=== PATIENT | female | born 1965 ===

== ENCOUNTER 2017-05-27 17:42 | Observation (INO) | payer MEDICARE, OTHER ==
[2017-05-27 17:48] VITALS: BMI 25.6
[2017-05-27] MEDS ORDERED: Morphine 4 MG/ML VIAL ONE (20:05)
[2017-05-27 20:22] LABS: BASO # 0.1 K/uL (0.0-0.2); BASO % 1.1 % (0.0-2.0); EOS # 0.3 K/uL (0.0-0.7); EOS % 3.7 % (0.0-4.0); HEMOGLOBIN 13.3 g/dL (11.0-16.0); LYMPH # 2.3 K/uL (1.0-4.3); LYMPH % 29.1 % (20.0-40.0); MEAN CELL VOLUME 82.1 fL (81.0-99.0); MEAN CORPUSCULAR HEMOGLOBIN 27.4 pg (27.0-31.0); MEAN CORPUSCULAR HGB CONC 33.3 g/dL (33.0-37.0); MONO # 0.7 K/uL (0.0-0.8); MONO % 8.8 % (0.0-10.0); NEUT # 4.5 K/uL (1.8-7.0); NEUT % 57.3 % (50.0-75.0); RBC 4.85 Mil/uL (3.80-5.20); RED CELL DISTRIBUTION WIDTH 18.9 % (11.5-14.5); WHITE BLOOD COUNT 7.9 K/uL (4.8-10.8)
[2017-05-27 20:31] LABS: INR 1.1; PROTHROMBIN TIME 12.5 SECONDS (9.7-12.2)
[2017-05-27 20:40] LABS: ALB/GLOB RATIO 1.2 (1.0-2.1); ALBUMIN 4.2 g/dL (3.5-5.0); ALT/SGPT 22 U/L (9-52); AST/SGOT 28 U/L (14-36); BLOOD UREA NITROGEN 18 mg/dL (7-17); CALCIUM 9.8 mg/dl (8.6-10.4); GFR AFRICAN-AMERICAN > 60; GFR NON-AFRICAN AMERICAN > 60; LIPASE 90 U/L (23-300)
[2017-05-27 20:43] LABS: SQUAMOUS EPITHIAL 1 /hpf (0-5); URINE BILIRUBIN NEGATIVE (NEGATIVE); URINE BLOOD NEGATIVE (NEGATIVE); URINE CLARITY Clear (Clear); URINE COLOR Yellow (YELLOW); URINE GLUCOSE (UA) NORMAL (Normal); URINE LEUKOCYTE ESTERASE NEG Leu/uL (Negative); URINE PROTEIN NEGATIVE (NEGATIVE); URINE UROBILINOGEN NORMAL mg/dL (0.2-1.0)
[2017-05-27 20:52] LABS: B-TYPE NATRIURETIC PEPTIDE 14.4 pg/mL (0-900)
[2017-05-27 20:54] LABS: BARBITURATES, UR NEGATIVE (NEGATIVE); PHENCYCLIDINE, UR NEGATIVE (NEGATIVE)
[2017-05-27 20:58] LABS: BENZODIAZEPINES, UR POSITIVE (NEGATIVE); OPIATES, UR POSITIVE (NEGATIVE)
[2017-05-27] MEDS ORDERED: DiphenhydrAMINE 50 mg/ml Inj IVP STA (21:19)
[2017-05-27] MEDS ORDERED: DiphenhydrAMINE 50 mg/ml Inj ONE (21:22)
[2017-05-27] MEDS ORDERED: Iodixanol 320 mg/ml 150 ml Bottle IV ONE (21:40)
--- NOTE | 2017-05-27 23:10 | CT ---
PROCEDURE: CT Chest with contrast (Pulmonary Angiogram) HISTORY: Chest pain, h/o PE COMPARISON: None available. TECHNIQUE: Axial computed tomography images were obtained of the chest in the pulmonary arterial phase of enhancement. Coronal and sagittal reformatted images were created and reviewed. Intravenous contrast dose: 100 cc of Visipaque 320 Radiation dose: Total exam DLP = 296.83 mGy-cm. This CT exam was performed using one or more of the following dose reduction techniques: Automated exposure control, adjustment of the mA and/or kV according to patient size, and/or use of iterative reconstruction technique. FINDINGS: PULMONARY ARTERIES: Unremarkable. No pulmonary embolism. AORTA: No acute findings. The thoracic aorta is ectatic. No thoracic aortic aneurysm. LUNGS: Unremarkable. No nodule, mass or pulmonary consolidation. PLEURAL SPACES: Unremarkable. No effusion or pneuomothorax. HEART: Unremarkable. No cardiomegaly. No significant pericardial effusion. LYMPH NODES: No lymphadenopathy. BONES, CHEST WALL: Status post internal fixation at the lower cervical spine. No fracture or destructive lesion OTHER FINDINGS: Unremarkable. IMPRESSION: No evidence of central pulmonary embolus. No evidence of pneumonia or suspicious mass in the lungs. Ectatic thoracic aorta without evidence of significant aneurysm or dissection.
--- NOTE | 2017-05-27 23:13 | C.PDOC ---
History Of Present Illness Pt states that she is on Eliquis due to Pulmonary Embolim. She c/o new onset chest pains. Time Seen by Provider: 05/27/17 19:40 Chief Complaint (Nursing): Chest Pain History Per: Patient Onset/Duration Of Symptoms: Days (2), Waxing/Waning Current Symptoms Are (Timing): Still Present Severity: Moderate Quality: "Pain" Associated Symptoms: Dyspnea Modifying Factors: Other Indicated Below Alleviating Factors: None Additional History Per: Prior Records Past Medical History Reviewed: Historical Data, Nursing Documentation, Vital Signs Vital Signs: Last Vital Signs Temp 98.5 F 05/27/17 17:55 Pulse 96 H 05/27/17 21:22 Resp 17 05/27/17 21:22 BP 134/83 05/27/17 21:22 Pulse Ox 97 05/27/17 21:22 - Medical History PMH: Anxiety, Back Problems, Depression, HTN, Hypothyroidism, Pulmonary Embolism , Chronic Pain Surgical History: Appendectomy, Back Surgery (X5), Cholecystectomy - [facility] Procedures TURBINECTOMY NEC (09/18/12) Family History: States: Unknown Family Hx - Social History Hx Alcohol Use: Yes Hx Substance Use: No Review Of Systems Except As Marked, All Systems Reviewed And Found Negative. Constitutional: Negative for: Fever, Weakness Cardiovascular: Positive for: Chest Pain Respiratory: Positive for: Cough. Negative for: Shortness of Breath, Hemoptysis Gastrointestinal: Negative for: Vomiting, Abdominal Pain Musculoskeletal: Positive for: Back Pain Skin: Negative for: Rash Neurological: Negative for: Weakness, Numbness Physical Exam - Physical Exam Appears: Non-toxic, No Acute Distress, Other (Uncomfortable) Skin: Normal Color, Warm, Dry, No Rash Head: Atraumatic, Normacephalic Eye(s): bilateral: PERRL, EOMI Neck: Normal ROM, Supple Cardiovascular: Rhythm Regular Respiratory: Normal Breath Sounds, No Accessory Muscle Use Gastrointestinal/Abdominal: Soft, No Tenderness Extremity: Normal ROM Neurological/Psych: Oriented x3, Normal Motor, Normal Sensation ED Course And Treatment - Laboratory Results Result Diagrams: 05/27/17 20:15 05/27/17 20:15 ECG: Interpreted By Me, Viewed By Me ECG Rhythm: Sinus Rhythm, Nonspecific Changes ECG Interpretation: No Acute Changes Rate From EC O2 Sat by Pulse Oximetry: 97 Pulse Ox Interpretation: Normal - CT Scan/US CTA of chest Other Rad Studies (CT/US): Read By Radiologist, Radiology Report Reviewed CT/US Interpretation: No sign of PE Progress - Interventions Interventions:: Observation - Medications Administered Oral: Aspirin Intravenous: Antihistamine (H-1), Opiate - Data Reviewed Data Reviewed: Lab, Diagnostic imaging, EKG, Old records - Patient Status Patient status: Partially improved - Continuity of Care Discussed patient case with:: Patient, ED Nurse, On-call PMD-pt unassigned Disposition Discussed With DrBindu: Moshe Salcedo Jr. Comment: He accepted pt on his service. Pt was also signed out to the MAR. Doctor Will See Patient In The: Hospital Counseled Patient/Family Regarding: Studies Performed, Diagnosis - Disposition Disposition: HOSPITALIZED Disposition Time: 23:22 Condition: FAIR - Clinical Impression Clinical Impression: Chest pain, rule out acute myocardial infarction
[2017-05-28] MEDS ORDERED: Morphine 4 MG/ML VIAL IVP STA (01:37)
[2017-05-28] MEDS ORDERED: Albuterol HFA 90 mcg/actuation (8 g) INH PRN (01:37)
--- NOTE | 2017-05-28 01:48 | CP.PCM.HP ---
History of Present Illness - History of Present Illness History of Present Illness: CC: chest pain 51 year old female with past medical history of anxiety, asthma, hypertension, PE on Eliquis and lumbar radiculopathy presents to the ED for chest pain. Patient reports her chest pain started 3 days ago. Patient reports the pain is located on her left side, radiates to the sternum, and it is worse with arm movement and position changes. Patient's pain did not improve and her pain management doctor recommend her to go to the ED to get evaluated. Patient also reports to have shortness of breath when the chest pain. Patient has extensive workup on her lumbar radiculopathy and is planning to have orthopedic in July with Dr. Babcock. Patient denies having fever, chills, headache, recent injuries to the chest, abdominal pain, nausea, vomiting or urinary symptoms. PMD: none PMHx: anxiety, hypertension, PE on Eliquis and lumbar radiculopathy PSHx: multiple spinal/neuro surgeries 2008 to 2013 due to a fall, partial thyroidectomy 2010 Allergy: erythromycin, metoprolol (throat swelling) Family Hx: non-contributory Social Hx: social alcohol use, former cigarette smoker, denies other drug use Home meds: albuterol, xanax, Norvasc, eliquis, lipitor, flexeril, synthroid, percocet Present on Admission - Present on Admission Any Indicators Present on Admission: No Review of Systems - Constitutional Constitutional: As Per HPI. absent: Chills, Fatigue, Fever - EENT Eyes: As Per HPI. absent: Change in Vision, Irritation Ears: As Per HPI. absent: Dizziness Nose/Mouth/Throat: As Per HPI. absent: Epistaxis, Nasal Trauma - Breasts Breasts: As Per HPI - Cardiovascular Cardiovascular: As Per HPI, Chest Pain, Chest Pain with Activity, Dyspnea. absent: Diaphoresis - Respiratory Respiratory: As Per HPI, Dyspnea. absent: Cough - Gastrointestinal Gastrointestinal: As Per HPI. absent: Nausea, Vomiting - Genitourinary Genitourinary: As Per HPI. absent: Dysuria - Reproductive: Female Reproductive:Female: As Per HPI - Menstruation Menstruation: As Per HPI - Musculoskeletal Musculoskeletal: As Per HPI, Radiating Pain into Limb. absent: Joint Swelling - Integumentary Integumentary: As Per HPI. absent: Alopecia - Neurological Neurological: As Per HPI, Radicular Pain. absent: Abnormal Speech, Tremor - Psychiatric Psychiatric: As Per HPI, Anxiety - Endocrine Endocrine: As Per HPI - Hematologic/Lymphatic Hematologic: As Per HPI Past Patient History - Past Social History Smoking Status: Former Smoker - CARDIAC Hx Hypertension: Yes - PULMONARY Hx Pulmonary Embolism: Yes - NEUROLOGICAL Hx Seizures: No - HEENT Hx HEENT Problems: No - RENAL Hx Chronic Kidney Disease: No - ENDOCRINE/METABOLIC Hx Hypothyroidism: Yes - HEMATOLOGICAL/ONCOLOGICAL Hx Human Immunodeficiency Virus (HIV): No - INTEGUMENTARY Hx Dermatological Problems: No - MUSCULOSKELETAL/RHEUMATOLOGICAL Hx Back Pain: Yes - GASTROINTESTINAL Hx Gastrointestinal Disorders: No - GENITOURINARY/GYNECOLOGICAL Hx Sexually Transmitted Disorders: No - PSYCHIATRIC Hx Anxiety: Yes Hx Depression: Yes Hx Substance Use: No - SURGICAL HISTORY Hx Appendectomy: Yes Hx Cholecystectomy: Yes - ANESTHESIA Hx Anesthesia: Yes Hx Anesthesia Reactions: No Meds Allergies/Adverse Reactions: Allergies Allergy/AdvReac Type Severity Reaction Status Date / Time erythromycin base Allergy ITCHING Verified 05/27/17 17:46 metoprolol Allergy ITCHING Verified 05/27/17 17:46 Physical Exam - Constitutional Appears: Non-toxic, No Acute Distress - Head Exam Head Exam: NORMOCEPHALIC - Eye Exam Eye Exam: EOMI, Normal appearance - ENT Exam ENT Exam: Mucous Membranes Moist - Neck Exam Neck exam: Positive for: Normal Inspection - Respiratory Exam Respiratory Exam: Clear to Auscultation Bilateral, NORMAL BREATHING PATTERN. absent: Wheezes, Respiratory Distress - Cardiovascular Exam Cardiovascular Exam: REGULAR RHYTHM, +S1, +S2 - GI/Abdominal Exam GI & Abdominal Exam: Normal Bowel Sounds, Soft. absent: Tenderness - Extremities Exam Additional comments: positive straight leg test on the right - Neurological Exam Neurological exam: Alert, Oriented x3 - Psychiatric Exam Psychiatric exam: Normal Affect, Normal Mood - Skin Skin Exam: Dry, Warm Results - Vital Signs Recent Vital Signs: Last Vital Signs Temp 98.5 F 05/27/17 17:55 Pulse 73 05/28/17 01:06 Resp 16 05/28/17 01:06 BP 123/77 05/28/17 01:06 Pulse Ox 98 05/28/17 01:06 - Labs Result Diagrams: 05/27/17 20:15 05/27/17 20:15 Labs: Laboratory Results - last 24 hr 04/12/0405/27/17 05/27/17 20:15 20:15 20:15 WBC 7.9 RBC 4.85 Hgb 13.3 Hct 39.8 MCV 82.1 MCH 27.4 MCHC 33.3 RDW 18.9 H Plt Count 337 MPV 8.0 Neut % (Auto) 57.3 Lymph % (Auto) 29.1 Cross % (Auto) 8.8 Eos % (Auto) 3.7 Baso % (Auto) 1.1 Neut # (Auto) 4.5 Lymph # (Auto) 2.3 Cross # (Auto) 0.7 Eos # (Auto) 0.3 Baso # (Auto) 0.1 PT 12.5 H INR 1.1 APTT 32 D-Dimer, Quantitative 342 H Sodium 144 Potassium 3.8 Chloride 103 Carbon Dioxide 27 Anion Gap 18 BUN 18 H Creatinine 0.6 L Est GFR ( Amer) > 60 Est GFR (Non-Af Amer) > 60 Random Glucose 88 Calcium 9.8 Total Bilirubin 0.5 AST 28 ALT 22 Alkaline Phosphatase 79 Troponin I < 0.0120 NT-Pro-B Natriuret Pep 14.4 Total Protein 7.6 Albumin 4.2 Globulin 3.4 Albumin/Globulin Ratio 1.2 Lipase 90 Urine Color Urine Clarity Urine pH Ur Specific [place] Urine Protein Urine Glucose (UA) Urine Ketones Urine Blood Urine Nitrate Urine Bilirubin Urine Urobilinogen Ur Leukocyte Esterase Urine WBC (Auto) Urine RBC (Auto) Ur Squamous Epith Cells Urine Opiates Screen Urine Methadone Screen Ur Barbiturates Screen Ur Phencyclidine Scrn Ur Amphetamines Screen U Benzodiazepines Scrn U Oth Cocaine Metabols U Cannabinoids Screen 05/27/17 05/27/17 20:34 20:34 WBC RBC Hgb Hct MCV MCH MCHC RDW Plt Count MPV Neut % (Auto) Lymph % (Auto) Cross % (Auto) Eos % (Auto) Baso % (Auto) Neut # (Auto) Lymph # (Auto) Cross # (Auto) Eos # (Auto) Baso # (Auto) PT INR APTT D-Dimer, Quantitative Sodium Potassium Chloride Carbon Dioxide Anion Gap BUN Creatinine Est GFR ( Amer) Est GFR (Non-Af Amer) Random Glucose Calcium Total Bilirubin AST ALT Alkaline Phosphatase Troponin I NT-Pro-B Natriuret Pep Total Protein Albumin Globulin Albumin/Globulin Ratio Lipase Urine Color Yellow Urine Clarity Clear Urine pH 6.0 Ur Specific [place] 1.017 Urine Protein Negative Urine Glucose (UA) Normal Urine Ketones Negative Urine Blood Negative Urine Nitrate Negative Urine Bilirubin Negative Urine Urobilinogen Normal Ur Leukocyte Esterase Neg Urine WBC (Auto) 1 Urine RBC (Auto) 1 Ur Squamous Epith Cells 1 Urine Opiates Screen Positive H Urine Methadone Screen Negative Ur Barbiturates Screen Negative Ur Phencyclidine Scrn Negative Ur Amphetamines Screen Negative U Benzodiazepines Scrn Positive U Oth Cocaine Metabols Negative U Cannabinoids Screen Negative Assessment & Plan - Assessment and Plan (Free Text) Assessment: Chest pain r/o ACS -EKG NSR at 95 bpm, left [place] deviation, no acute ST changes -Troponin negative, repeats pending -Elevated d-dimer, CTA chest negative for PE -Follow up morning EKG -Toradol for pain History of PE -Eliquis 5mg BID Hypertension -Amlodipine 5mg bid Asthma -Ventolin prn Thyroid tumor s/p partial resection -synthroid 75mcg Lumbar radiculopathy -Flexeril 10mg prn -Percocet Prophylactic measures -Protonix -Eliquis Discussed with attending All management per Dr. Salcedo
[2017-05-28] MEDS ORDERED: Morphine 4 MG/ML VIAL IVP ONE (04:45)
[2017-05-28 04:52] LABS: ALB/GLOB RATIO 1.2 (1.0-2.1); ALBUMIN 3.6 g/dL (3.5-5.0); ALT/SGPT 29 U/L (9-52); AST/SGOT 22 U/L (14-36); BLOOD UREA NITROGEN 15 mg/dL (7-17); GFR AFRICAN-AMERICAN > 60; GFR NON-AFRICAN AMERICAN > 60
[2017-05-28] MEDS ORDERED: DiphenhydrAMINE 50 mg/ml Inj IVP ONE ×2 (05:04→14:15)
[2017-05-28] MEDS ORDERED: Levothyroxine 75 MCG TAB PO SCH (06:30)
--- NOTE | 2017-05-28 06:58 | RAD ---
Chest x-ray single frontal view History: Chest pain. Comparison: None available. Findings Mild venous congestion. Right hilar prominence. Mild patchy increased markings at the left lung base. Heart size within normal limits. Postsurgical changes in the cervical spine. Impression: Mild venous congestion. Right hilar prominence. Mild patchy increased markings at the left lung base. Heart size within normal limits. Postsurgical changes in the cervical spine.
[2017-05-28 07:21] LABS: BASO # 0.1 K/uL (0.0-0.2); BASO % 1.4 % (0.0-2.0); EOS # 0.3 K/uL (0.0-0.7); EOS % 4.8 % (0.0-4.0); HEMOGLOBIN 12.2 g/dL (11.0-16.0); LYMPH # 2.2 K/uL (1.0-4.3); LYMPH % 34.8 % (20.0-40.0); MEAN CELL VOLUME 82.5 fL (81.0-99.0); MEAN CORPUSCULAR HEMOGLOBIN 27.2 pg (27.0-31.0); MEAN CORPUSCULAR HGB CONC 32.9 g/dL (33.0-37.0); MEAN PLATELET VOLUME 7.8 fL (7.2-11.7); MONO # 0.6 K/uL (0.0-0.8); MONO % 8.8 % (0.0-10.0); NEUT # 3.2 K/uL (1.8-7.0); NEUT % 50.2 % (50.0-75.0); NRBC % 0.2 % (0.0-2.0); RBC 4.48 Mil/uL (3.80-5.20); RED CELL DISTRIBUTION WIDTH 18.6 % (11.5-14.5); WHITE BLOOD COUNT 6.3 K/uL (4.8-10.8)
[2017-05-28] MEDS ORDERED: Pantoprazole 40 mg EC Tab PO SCH (10:00)
[2017-05-28] MEDS ORDERED: Enoxaparin 40 mg Syringe SC SCH (10:00)
[2017-05-28 10:27] LABS: CK-MB 0.32 ng/mL (0.0-3.38)
[2017-05-28 15:17] VITALS: RESP 16
--- NOTE | 2017-05-28 16:45 | CP.PCM.DIS ---
Provider - Provider Date of Admission: 05/27/17 23:23 Attending physician: Moshe Salcedo Jr, MD Time Spent in preparation of Discharge (in minutes): 45 Hospital Course - Lab Results Lab Results: Most Recent Lab Values WBC 6.3 K/uL (4.8-10.8) 05/28/17 04:00 RBC 4.48 Mil/uL (3.80-5.20) 05/28/17 04:00 Hgb 12.2 g/dL (11.0-16.0) 05/28/17 04:00 Hct 37.0 % (34.0-47.0) 05/28/17 04:00 MCV 82.5 fL (81.0-99.0) 05/28/17 04:00 MCH 27.2 pg (27.0-31.0) 05/28/17 04:00 MCHC 32.9 g/dL (33.0-37.0) L 05/28/17 04:00 RDW 18.6 % (11.5-14.5) H 05/28/17 04:00 Plt Count 268 K/uL (130-400) 05/28/17 04:00 MPV 7.8 fL (7.2-11.7) 05/28/17 04:00 Neut % (Auto) 50.2 % (50.0-75.0) 05/28/17 04:00 Lymph % (Auto) 34.8 % (20.0-40.0) 05/28/17 04:00 [place] % (Auto) 8.8 % (0.0-10.0) 05/28/17 04:00 Eos % (Auto) 4.8 % (0.0-4.0) H 05/28/17 04:00 Baso % (Auto) 1.4 % (0.0-2.0) 05/28/17 04:00 Neut # (Auto) 3.2 K/uL (1.8-7.0) 05/28/17 04:00 Lymph # (Auto) 2.2 K/uL (1.0-4.3) 05/28/17 04:00 [place] # (Auto) 0.6 K/uL (0.0-0.8) 05/28/17 04:00 Eos # (Auto) 0.3 K/uL (0.0-0.7) 05/28/17 04:00 Baso # (Auto) 0.1 K/uL (0.0-0.2) 05/28/17 04:00 PT 12.5 SECONDS (9.7-12.2) H 05/27/17 20:15 INR 1.1 05/27/17 20:15 APTT 32 SECONDS (21-34) 05/27/17 20:15 D-Dimer, Quantitative 342 ng/mlDDU (0-243) H 05/27/17 20:15 Sodium 143 mmol/L (132-148) 05/28/17 03:33 Potassium 3.7 mmol/L (3.6-5.2) 05/28/17 03:33 Chloride 106 mmol/L (98-107) 05/28/17 03:33 Carbon Dioxide 26 mmol/L (22-30) 05/28/17 03:33 Anion Gap 15 (10-20) 05/28/17 03:33 BUN 15 mg/dL (7-17) 05/28/17 03:33 Creatinine 0.5 mg/dL (0.7-1.2) L 05/28/17 03:33 Est GFR ( Amer) > 60 05/28/17 03:33 Est GFR (Non-Af Amer) > 60 05/28/17 03:33 Random Glucose 107 mg/dL (65-105) H 05/28/17 03:33 Calcium 9.0 mg/dl (8.6-10.4) 05/28/17 03:33 Total Bilirubin 0.5 mg/dL (0.2-1.3) 05/28/17 03:33 AST 22 U/L (14-36) 05/28/17 03:33 ALT 29 U/L (9-52) 05/28/17 03:33 Alkaline Phosphatase 64 U/L (38-126) 05/28/17 03:33 Total Creatine Kinase 45 U/L (30-135) 05/28/17 09:56 CK-MB (Mass) 0.32 ng/mL (0.0-3.38) 05/28/17 09:56 Troponin I < 0.0120 ng/mL (0.00-0.120) 05/28/17 09:56 NT-Pro-B Natriuret Pep 14.4 pg/mL (0-900) 05/27/17 20:15 Total Protein 6.5 g/dL (6.3-8.3) 05/28/17 03:33 Albumin 3.6 g/dL (3.5-5.0) 05/28/17 03:33 Globulin 2.9 gm/dL (2.2-3.9) 05/28/17 03:33 Albumin/Globulin Ratio 1.2 (1.0-2.1) 05/28/17 03:33 Lipase 90 U/L (23-300) 05/27/17 20:15 Urine Color Yellow (YELLOW) 05/27/17 20:34 Urine Clarity Clear (Clear) 05/27/17 20:34 Urine pH 6.0 (5.0-8.0) 05/27/17 20:34 Ur Specific [place] 1.017 (1.003-1.030) 05/27/17 20:34 Urine Protein Negative mg/dL (NEGATIVE) 05/27/17 20:34 Urine Glucose (UA) Normal mg/dL (Normal) 05/27/17 20:34 Urine Ketones Negative mg/dL (NEGATIVE) 05/27/17 20:34 Urine Blood Negative (NEGATIVE) 05/27/17 20:34 Urine Nitrate Negative (NEGATIVE) 05/27/17 20:34 Urine Bilirubin Negative (NEGATIVE) 05/27/17 20:34 Urine Urobilinogen Normal mg/dL (0.2-1.0) 05/27/17 20:34 Ur Leukocyte Esterase Neg [place]/uL (Negative) 05/27/17 20:34 Urine WBC (Auto) 1 /hpf (0-5) 05/27/17 20:34 Urine RBC (Auto) 1 /hpf (0-3) 05/27/17 20:34 Ur Squamous Epith Cells 1 /hpf (0-5) 05/27/17 20:34 Urine Opiates Screen Positive (NEGATIVE) H 05/27/17 20:34 Urine Methadone Screen Negative (NEGATIVE) 05/27/17 20:34 Ur Barbiturates Screen Negative (NEGATIVE) 05/27/17 20:34 Ur Phencyclidine Scrn Negative (NEGATIVE) 05/27/17 20:34 Ur Amphetamines Screen Negative (NEGATIVE) 05/27/17 20:34 U Benzodiazepines Scrn Positive (NEGATIVE) 05/27/17 20:34 U Oth Cocaine Metabols Negative (NEGATIVE) 05/27/17 20:34 U Cannabinoids Screen Negative (NEGATIVE) 05/27/17 20:34 - Hospital Course Hospital Course: 51 year old female with past medical history of anxiety, asthma, hypertension, PE on Eliquis and lumbar radiculopathy presents to the ED for chest pain. Patient reports her chest pain started 3 days ago. Patient reports the pain is located on her left side, radiates to the sternum, and it is worse with arm movement and position changes. Patient's pain did not improve and her pain management doctor recommend her to go to the ED to get evaluated. Patient also reports to have shortness of breath when the chest pain. Patient has extensive workup on her lumbar radiculopathy and is planning to have orthopedic in July with Dr. Babcock. Patient denies having fever, chills, headache, recent injuries to the chest, abdominal pain, nausea, vomiting or urinary symptoms. Patient had 3 negative trops as well as 3 EKGs done at [address] changes or arrythmogenic intervals when compared to prior studies. Patient is stable to go home and instructed to come back to the ED if chest pain persists. Discharge Exam - Head Exam Head Exam: NORMOCEPHALIC - Eye Exam Eye Exam: EOMI, Normal appearance, PERRL Pupil Exam: NORMAL ACCOMODATION, PERRL - GI/Abdominal Exam GI & Abdominal Exam: Normal Bowel Sounds - Neurological Exam Neurological exam: Alert, CN II-XII Intact, Normal Gait, Oriented x3, Reflexes Normal - Psychiatric Exam Psychiatric exam: Normal Affect, Normal Mood - Skin Skin Exam: Dry, Intact, Normal Color, Warm Discharge Plan - Follow Up Plan Condition: FAIR Disposition: HOME/ ROUTINE Instructions: Chest Pain (DC), Chronic Pain
[2017-05-28] MEDS ORDERED: Morphine 4 MG/ML VIAL IV ONE (17:08)
[2017-05-28 18:30] VITALS: BP 110/61; PULSE 71; O2SAT 98
[2017-05-28 18:31] VITALS: TEMP 97.6
--- NOTE | 2017-05-28 20:47 | CARD ---
APPROVED REPORT EKG Measurement Heart [id number] <Conclusion> Normal sinus rhythm Minimal voltage criteria for LVH, may be normal variant Borderline ECG
== END 2017-05-28 18:15 | disposition home or self-care (01) ==
LOC: C.ER 17:42 → C.9E 23:23 → C.9I 05-28 00:55
PROVIDERS: ADMIT Internal Medicine; ATTEND Internal Medicine
DX: R07.9 Chest pain, unspecified (principal); G89.29 Other chronic pain; M54.16 Radiculopathy, lumbar region; J45.909 Unspecified asthma, uncomplicated; I10 Essential (primary) hypertension; F41.9 Anxiety disorder, unspecified; Z86.711 Personal history of pulmonary embolism; Z79.01 Long term (current) use of anticoagulants; F32.9 Major depressive disorder, single episode, unspecified; E89.0 Postprocedural hypothyroidism; Z87.891 Personal history of nicotine dependence; Z88.1 Allergy status to other antibiotic agents; Z88.8 Allergy status to other drugs, medicaments and biological substances; R79.1 Abnormal coagulation profile
CPT/HCPCS: 71045; 71275; 80053; 81001; 83690; 83880; 84484; 85025; 85378; 85610; 85730; 87070; 87081; 93005; 96374; G0378; G0480; J1200; J1885; J2270; Q9967

== ENCOUNTER 2017-09-08 21:16 | Emergency (ER) | payer MEDICARE, OTHER ==
[2017-09-08 21:17] VITALS: BMI 25.6
[2017-09-08 22:13] LABS: BASO # 0.1 K/uL (0.0-0.2); EOS # 0.4 K/uL (0.0-0.7)
[2017-09-08 22:14] LABS: BASO % 1.3 % (0.0-2.0); RBC 5.05 Mil/uL (3.80-5.20)
[2017-09-08 22:18] LABS: EOS % 4.3 % (0.0-4.0); LYMPH # 3.1 K/uL (1.0-4.3); LYMPH % 31.8 % (20.0-40.0); MEAN CELL VOLUME 81.8 fL (81.0-99.0); MEAN CORPUSCULAR HEMOGLOBIN 27.7 pg (27.0-31.0); MEAN CORPUSCULAR HGB CONC 33.8 g/dL (33.0-37.0); MEAN PLATELET VOLUME 7.8 fL (7.2-11.7); MONO # 0.9 K/uL (0.0-0.8); MONO % 9.4 % (0.0-10.0); NEUT # 5.1 K/uL (1.8-7.0); NEUT % 53.2 % (50.0-75.0); NRBC % 0.5 % (0.0-2.0); RED CELL DISTRIBUTION WIDTH 16.5 % (11.5-14.5)
[2017-09-08 22:22] LABS: WHITE BLOOD COUNT 9.7 K/uL (4.8-10.8)
[2017-09-08 22:23] LABS: ALB/GLOB RATIO 1.4 (1.0-2.1); ALBUMIN 4.3 g/dL (3.5-5.0); CALCIUM 9.3 mg/dl (8.6-10.4); D DIMER < 200 ng/mlDDU (0-243); GFR AFRICAN-AMERICAN > 60; GFR NON-AFRICAN AMERICAN > 60; INR 1.1; PARTIAL THROMBOPLASTIN TIME 32 SECONDS (21-34); PROTHROMBIN TIME 11.5 SECONDS (9.7-12.2)
[2017-09-08 22:34] LABS: ALT/SGPT 60 U/L (9-52); AST/SGOT 34 U/L (14-36); BLOOD UREA NITROGEN 15 mg/dL (7-17)
[2017-09-08 22:35] LABS: B-TYPE NATRIURETIC PEPTIDE 25.4 pg/mL (0-900)
--- NOTE | 2017-09-08 23:03 | C.PDOC ---
History Of Present Illness 52 y/o female presents to the ED with digitally and positionally reproducible pain to the left upper chest and left lateral ribs for 3 days. Patient was admitted for the same on 05/28/17, and had normal cardiac workup. ACS was ruled out, PE was ruled out. Patient is prescribed Percocet for chronic low back pain and Xanax 0.5 mg x2 for anxiety. 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 Otherwise she denies any SOB , palpitations, dizziness, weakness, vomiting, or other complaints. Time Seen by Provider: 09/08/17 21:47 Chief Complaint (Nursing): Chest Pain History Per: Patient History/Exam Limitations: no limitations Onset/Duration Of Symptoms: Days Current Symptoms Are (Timing): Still Present Past Medical History Reviewed: Historical Data, Nursing Documentation, Vital Signs Vital Signs: Last Vital Signs Temp 97.2 F L 09/08/17 23:33 Pulse 83 09/08/17 23:33 Resp 20 09/08/17 23:33 BP 148/99 H 09/08/17 23:33 Pulse Ox 99 09/08/17 23:33 - Medical History PMH: Anxiety, Back Problems, HTN, Hypothyroidism, Pulmonary Embolism, Chronic Pain Denies: Depression, Diabetes, Hepatitis, HIV, Chronic Kidney Disease, Seizures, Sexually Transmitted Disease Surgical History: Appendectomy (1990), Back Surgery (X5), Cholecystectomy (1990) - [facility] Procedures TURBINECTOMY NEC (09/18/12) Family History: States: Unknown Family Hx - Social History Hx Alcohol Use: No Hx Substance Use: No Review Of Systems Except As Marked, All Systems Reviewed And Found Negative. Cardiovascular: Positive for: Chest Pain. Negative for: Palpitations Respiratory: Negative for: Shortness of Breath Gastrointestinal: Negative for: Nausea, Vomiting Musculoskeletal: Positive for: Back Pain Neurological: Negative for: Weakness, Dizziness Physical Exam - Physical Exam Appears: Non-toxic, No Acute Distress, Other (Appears anxious, argumentative) Skin: Normal Color, Warm, Dry Head: Atraumatic, Normacephalic Eye(s): bilateral: EOMI, Other (dilated pupils) Oral Mucosa: Moist Neck: Normal ROM Chest: Symmetrical, Tenderness (digitally and positionally reproducible pain to the left upper chest and left lateral ribs) Cardiovascular: Rhythm Regular, No Murmur Respiratory: Normal Breath Sounds, No Accessory Muscle Use, No Rales, No Rhonchi , No Wheezing Gastrointestinal/Abdominal: Soft, No Tenderness Back: Normal Inspection, No Vertebral Tenderness, No Decreased ROM Extremity: Bilateral: Atraumatic, Normal Color And Temperature, Normal ROM Neurological/Psych: Oriented x3, Normal Speech, Normal Cranial Nerves, Other ( Non-focal neuro exam) ED Course And Treatment - Laboratory Results Result Diagrams: 09/08/17 22:02 09/08/17 22:02 Lab Interpretation: Normal (trop/bnp/d-dimer neg) ECG: Interpreted By Me ECG Rhythm: Sinus Rhythm ECG Interpretation: Normal Rate From EC O2 Sat by Pulse Oximetry: 96 Pulse Ox Interpretation: Normal - Radiology CXR: Interpreted by Me CXR Interpretation: Yes: No Acute Disease Progress Note: xanax 0.5 PO Medical Decision Making Medical Decision Making: Chest wall discomfort adm for same 05/28/17 (pt does not recall) same presentation normal w/u today LOW susp of PE/ACS chronic pain/lower back [place] [employer] ADMINISTRATOR reviewed: 180 Percocet 10/325 per month PLUS Xanax 0.5 mg PO BID (60/month) from 2 separate prescribers pt argumentative and confrontational in ED and moving lower back without apparent pain when not observed Consider drug seeking/diverting behavior. Consider d/w prescribers for appropriate chronic pain referrals. Disposition Doctor Will See Patient In The: Office Counseled Patient/Family Regarding: Studies Performed, Diagnosis - Disposition Referrals: [facility] [Outside] [facility] [Outside] [facility] [Outside] Pepe Sanders MD [Medical Doctor] - Disposition: HOME/ ROUTINE Disposition Time: 23:07 Condition: GOOD Additional Instructions: motrin and ice packs for your L anterior chest wall pain Chronic back pain Consider alternative medications and referral to chronic pain specialists Instructions: Costochondritis, Chronic Pain (DC) Forms: Unmetric (Syriac) - Clinical Impression Clinical Impression: Chest wall discomfort, Chronic back pain - Scribe Statement The provider has reviewed the documentation as recorded by the Scribe (Alejandra Tomlin) Provider Attestation: All medical record entries made by the Scribe were at my direction and personally dictated by me. I have reviewed the chart and agree that the record accurately reflects my personal performance of the history, physical exam, medical decision making, and the department course for this patient. I have also personally directed, reviewed, and agree with the discharge instructions and disposition.
[2017-09-08 23:33] VITALS: BP 148/99; PULSE 83; RESP 20; TEMP 97.2
[2017-09-09 00:50] VITALS: O2SAT 96
--- NOTE | 2017-09-09 08:44 | RAD ---
Date of service: 09/08/2017 PROCEDURE: CHEST RADIOGRAPH, 1 VIEW HISTORY: SOB COMPARISON: 05/27/2017. FINDINGS: LUNGS: The lungs are well inflated and clear. PLEURA: No pneumothorax or pleural fluid seen. CARDIOVASCULAR: Normal. OSSEOUS STRUCTURES: No significant abnormalities. Stable hardware in the lower cervical spine. VISUALIZED UPPER ABDOMEN: Normal. OTHER FINDINGS: None. IMPRESSION: No active pulmonary disease.
--- NOTE | 2017-09-09 21:41 | CARD ---
APPROVED REPORT Date of service: 09/08/2017 EKG Measurement Heart [id number] [id number] <Conclusion> Normal sinus rhythm Minimal voltage criteria for LVH, may be normal variant Borderline ECG
== END 2017-09-08 23:34 | disposition home or self-care (01) ==
LOC: C.ER 21:16
DX: R07.89 Other chest pain (principal); M54.9 Dorsalgia, unspecified; G89.29 Other chronic pain; I10 Essential (primary) hypertension; Z86.711 Personal history of pulmonary embolism; Z87.891 Personal history of nicotine dependence